=== PATIENT | female | born 1955 | race Caucasian/White ===

== ENCOUNTER 2016-09-21 07:26 | Outpatient (CLI) | payer OTHER ==
[2016-09-21 08:31] LABS: eGFR (African) > 60; eGFR (Non-African) > 60
== END 2016-09-21 07:27 ==
LOC: LAB 07:26
PROVIDERS: ATTEND Family Medicine
DX: E78.2 Mixed hyperlipidemia (principal); E11.9 Type 2 diabetes mellitus without complications
CPT/HCPCS: 36415; 80053; 80061; 83036

== ENCOUNTER 2017-09-20 09:43 | Outpatient (CLI) | payer OTHER ==
[2017-09-20 10:31] LABS: eGFR (African) > 60; eGFR (Non-African) > 60
== END 2017-09-20 09:44 ==
LOC: LAB 09:43
PROVIDERS: ATTEND Family Medicine
DX: E78.2 Mixed hyperlipidemia (principal); R73.03 Prediabetes
CPT/HCPCS: 36415; 80053; 80061; 83036

== ENCOUNTER 2018-09-20 08:20 | Outpatient (CLI) | payer OTHER ==
[2018-10-04 14:43] LABS: A1C 5.7 % (-5.7); HDL 36 mg/dL (>40); eGFR (Non-African) > 60
== END 2018-09-20 08:25 | disposition home or self-care (01) ==
LOC: LAB 08:20
PROVIDERS: ATTEND Family Medicine
DX: E11.9 Type 2 diabetes mellitus without complications (principal)
CPT/HCPCS: 36415; 80053; 80061; 83036

== ENCOUNTER 2019-01-06 10:55 | Outpatient (CLI) | payer OTHER ==
--- NOTE | 2019-01-06 13:08 | Diagnostic Imaging Report ---
BETSEY YBARRA [facility] [address] [facility] [address] [place], [place]. [address] Report Submission Date: Jan 06, 2019 11:24:19 AM CDT Patient Study Name: ALEX YOON Date: Jan 06, 2019 11:02:44 AM CDT Modality Type: CT\SR Gender: F Description: CT MAXILLOFACIAL W/O D : 55 Institution: [facility] Physician: BETSEY YBARRA Exam: CT face. History: Right eye swelling. Axial images through the face are submitted along with sagittal and coronal reformatted images. A 3.2 by 2.1 x 2.6 cm expansile mass in the right side of the frontal sinus is noted . The mass erodes anterior medially and posteriorly . Involvement of the right frontal lobe of the brain is of concern. Soft tissue swelling extending from this mass over the right orbit is noted. Air-fluid level in the maxillary sinuses are noted. Opacification of the remainder of the frontal sinuses is noted. Mucoperiosteal thickening in the ethmoid and sphenoid sinus is noted. No retro-orbital masses or fluid collections are noted. No nasal septal deviation is identified. Mucoperiosteal thickening encroaches on the ostiomeatal complexes bilaterally. Impression: Large expansile mass in the right side of the frontal sinus erodes anteriorly, medially and posteriorly. Associated soft tissue swelling over the right orbit is noted. Questionable involvement of the right frontal lobe of the brain is noted. Air-fluid level in the maxillary sinuses. Opacification of the remainder of the frontal sinuses. Mucoperiosteal thickening in the ethmoid and sphenoid sinuses. MRI may be beneficial to further characterize. Electronically signed on Jan 06, 2019 11:24:19 AM CDT by: Jose J GROSS
== END 2019-01-06 10:57 ==
LOC: RAD 10:55
PROVIDERS: ATTEND Family Medicine
DX: H57.89 Other specified disorders of eye and adnexa (principal)
CPT/HCPCS: 70486